=== PATIENT | male | born 1960 | race Caucasian/White ===

== ENCOUNTER 2016-09-13 21:47 | Emergency (ER) | payer MEDICARE, MEDICAID ==
--- NOTE | 2016-09-13 21:54 | ED.REPORT ---
HPI-General Illness Date of Service Sep 13, 2016 ED Provider: Austen Marino MD 55 y/o intoxicated male with a history of traumatic brain injury, long history of methamphetamine and alcohol use is brought to the ED by [employer] due to strange behavior, just prior to arrival. He was found lying on the road, screaming at the cars. His speech is unintelligible. He was cooperative with the police and remains so in the ED. The police found a bag with meth in his pocket. His alcohol level, recorded in the ED is 249. Further hx is unavailable due to the pt's condition. Nursing Notes Stated Complaint: PSYCH EVAL Chief Complaint: Psychiatric Complaint Nursing Notes Reviewed: Yes Allergies: Coded Allergies: No Known Allergies (Verified Allergy, Unknown, 05/23/15) No Active Prescriptions or Reported Meds General Time Seen by MD: 21:50 Chief Complaint Other (strange behavior) Hx Obtained From: Patient Arrived By: Police Sudden in Onset?: No Onset Occurred: Just prior to arrival Symptom Duration: Since onset Recent Healthcare: Recent doctor visit Similar Sx Previous: Yes Past Medical History Past Medical History Notes: Patient is unable to give past history. He is reportedly chronic alcoholic. Past Medical History none reported Past Surgical History Denies Smoking History Heavy Tobacco Smoker Social History Alcohol Use: 1-3 per day Drug Use: Meth Ambulatory Status Independent Review of Systems Unable to Obtain ROS Patient condition Complete sys rev & neg: except as marked. Physical Exam Vital Signs Vital Signs Date Time Temp Pulse Resp B/P Pulse Ox O2 Delivery O2 Flow Rate FiO2 09/13/16 21:55 80 16 124/89 97 Room Air Initial VS: Reviewed Head / Eyes: Atraumatic, Normocephalic Neck: Supple, Full range of motion Respiratory: No respiratory distress Cardiovascular: Intact distal pulses Extremities: Vascular intact, Neuro intact, No swelling, No tenderness Skin: Warm, Dry, No cyanosis Neurologic: Alert, Nonfocal General/Constitutional: Awake, Cooperative Appearance / Presentation: Positive: Intoxicated The pt is disheveled. He is bellowing and struggling symmetrically. Abdomen: Atraumatic, Soft, Non-tender, No guarding, No rebound Pt has an umbilical hernia. Interpretation & Diagnostics Lab Results Interpretation Result Diagram: 09/13/16 2252 09/13/16 2252 Test 09/13/16 22:52 White Blood Count 6.1th/mm3 (3.8-10.1) Red Blood Count 4.41mil/mm3 (4.40-5.80) Hemoglobin 13.3g/dL (13.8-17.2) Hematocrit 38.9% (41.0-50.0) Mean Corpuscular Volume 88.2fL (81-100) Mean Corpuscular Hemoglobin 30.2pg (27.0-35.0) Mean Corpuscular Hemoglobin Concent 34.2% (32.0-37.0) Red Cell Distribution Width 14.2% (12.3-15.4) Platelet Count 280bil/L (150-400) Neutrophils (%) (Auto) 63.6% (40-74) Lymphocytes (%) (Auto) 24.7% (14-46) Monocytes (%) (Auto) 8.5% (4-12) Eosinophils (%) (Auto) 2.8% (0-5) Basophils (%) (Auto) 0.2% (0-3) Sodium Level 141mEq/L (134-144) Potassium Level 3.4mEq/L (3.5-5.2) Chloride Level 104mEq/L (97-108) Carbon Dioxide Level 18mmol/L (18-29) Blood Urea Nitrogen 19mg/dL (6-24) Creatinine 0.80mg/dL (0.76-1.27) Estimat Glomerular Filtration Rate 106mL/min (>59) Glucose Level 84mg/dL (60-99) Calcium Level 8.7mg/dL (8.5-10.1) Total Bilirubin 0.5mg/dL (0.0-1.2) Aspartate Amino Transf (AST/SGOT) 23U/L (0-50) Alanine Aminotransferase (ALT/SGPT) 15U/L (0-44) Alkaline Phosphatase 109U/L (25-150) Total Protein 6.6g/dL (6.4-8.4) Albumin 4.2g/dL (3.4-5.0) Thyroid Stimulating Hormone (TSH) 0.920uIU/mL (0.450-4.500) Alcohols 249mg/dL (0-10) CT Head Interpretation Conclusion: No acute intracranial hemorrhage or mass effect. Signed by Dr. Will Handley 07/31/17 22:45 Study: Head CT no contrast Interpretation / Wet Read by: Interpret - Radiologist Re-Eval/Medical Decision Med Decision/Clinical Course 55-year-old with prior traumatic brain injury, chronic meth and alcohol abuse, brought due to bizarre behavior tonight. He was lying in a road screaming at passing cars. Whether or not he can struck is not known. He gives no coherent history. His CT of his cranium is negative. His alcohol level is substantial and he is positive for methamphetamine. He is reasonably calm after Haldol and Ativan. Metabolizing his intoxicants at this point awaiting reassessment this morning. Signed out to Dr. Quintero at 6 AM Source of Hx: Old records Discharge & Departure Shift Change Sign-Out Patient Care Transferred: Yes Discussed Complaint(s): Yes Laboratory Evaluation: Lab evaluation discussed Imaging Studies: Imaging discussed Primary Impression: Psychosis Psychosis type: unspecified psychosis type Qualified Code: F29 - Unspecified psychosis not due to a substance or known physiological condition Additional Impressions: Methamphetamine abuse Alcohol intoxication Discharge Condition All VS Reviewed: Yes Referrals: [facility] (PCP) Care Transferred to: Dr. Quintero Care Transferred at: 06:00 Scribe Attestation Portions of this note were transcribed by Ervin Noguera. I,, personally performed the history, physical exam and medical decision-making;I reviewed and confirmed the accuracy of the information in the transcribed note. Signed by Jasen Melvin. 09/13/16 copies to: [facility] Christopher W MD Sep 13, 2016 21:54 Ervin Noguera Sep 14, 2016 00:29
[2016-09-13 21:55] VITALS: BP 124/89; PULSE 80; RESP 16; O2SAT 97
[2016-09-13] MEDS ORDERED: Haloperidol 5 mg/mL Inj IM ONE (21:55)
[2016-09-13 22:55] LABS: BASOPHILS % (AUTO) 0.2 % (0-3); EOSINOPHILS % (AUTO) 2.8 % (0-5); MONOCYTES % (AUTO) 8.5 % (4-12); Mean Corpuscular Hemoglobin 30.2 pg (27.0-35.0); Mean Corpuscular Volume 88.2 fL (81-100); NEUTROPHILS % (AUTO) 63.6 % (40-74); Platelet Count 280 bil/L (150-400)
[2016-09-14 06:25] VITALS: BP 114/75; PULSE 61; RESP 16; O2SAT 98
--- NOTE | 2016-09-14 07:52 | DRSVH ---
PROCEDURE: CT BRAIN WITHOUT CONTRAST ([id number]) INDICATIONS: found in street, intoxicated, confused TECHNIQUE: Noncontrast 4.5 mm thick angled axial sections acquired from the foramen magnum to the vertex, with c oronal reformats. COMPARISON: None. FINDINGS: Image quality: Excellent. CSF spaces: Basal cisterns are patent. No extra-axial fluid collections. Ventricles are normal in size and shape. Brain: No midline shift. No intracranial masses or hemorrhage. Rivera-white matter interface is norm al. Skull and face: Right frontoparietal craniotomy, old finding. Calvarium and visualized facial bones a re otherwise intact, without suspicious lesions. Sinuses: Visualized sinuses and mastoids are clear. IMPRESSION: No acute intracranial abnormality. Dictated by: Kane Marie M.D. on 09/14/2016 at 7:46 this report corresponds to the findings of the preliminary NSR report. Approved by: Kane Marie M.D. on 09/14/2016 at 7:49
[2016-09-14 08:15] VITALS: BP 120/81; PULSE 72; RESP 20; O2SAT 98
[2016-09-14 08:26] VITALS: BP 120/81; PULSE 72; RESP 20; O2SAT 98
== END 2016-09-14 08:26 | disposition home or self-care (01) ==
LOC: SED 21:47
DX: F29 Unspecified psychosis not due to a substance or known physiological condition (principal); F15.10 Other stimulant abuse, uncomplicated; F10.129 Alcohol abuse with intoxication, unspecified; Z59.0 Homelessness; Z87.820 Personal history of traumatic brain injury; F17.200 Nicotine dependence, unspecified, uncomplicated
CPT/HCPCS: 36415; 70450; 80053; 82075; 84443; 85025; 96372; 99285; G0480; J1630